=== PATIENT | female | born 1985 | race Caucasian/White ===

== ENCOUNTER 2017-01-29 14:47 | Emergency (ER) | payer BC ==
[~2017-01-29] VITALS: Ht 170.2 cm; Wt 77.0 kg
[~2017-01-29 14:47] MED LIST: ALBU8.5H3 INH; ALPR0.25 PO; CARI350T PO; ESTR1TAB15 PO; FLUT9.9S NS; HYDR-3307 PO; MELA1TAB15 PO; NAPR500T3 PO; OXYC-302 PO; PARO20TA55 PO; POLY17PO5 PO
[2017-01-29] MEDS ORDERED: SODIUM CHLORIDE 0.9% 1,000 ML IV ONE (15:10)
[2017-01-29] MEDS ORDERED: NALOXONE 1 MG/ML, 2ML ONE (15:21)
[2017-01-29] MEDS ORDERED: NALOXONE 1 MG/ML, 2ML IVPush ONE (15:30)
[2017-01-29 15:36] LABS: BLOOD UREA NITROGEN 15 mg/dL (7-18)
[2017-01-29 15:37] LABS: ASPARTATE AMINO TRANSFERASE 17 U/L (15-37)
[2017-01-29 17:51] VITALS: BP 123/66
== END 2017-01-29 17:53 | disposition home or self-care (01) ==
LOC: ED 15:37
DX: F12.10 Cannabis abuse, uncomplicated (principal); R41.82 Altered mental status, unspecified; R41.0 Disorientation, unspecified; J45.909 Unspecified asthma, uncomplicated
CPT/HCPCS: 36415; 70450; 71010; 80053; 83690; 84703; 85025; 96374; 99285; J2310; J7030

== ENCOUNTER 2017-02-01 18:30 | Emergency (ER) | payer BC ==
[~2017-02-01] VITALS: Ht 170.2 cm; Wt 77.0 kg
[2017-02-01 18:58] LABS: ASPARTATE AMINO TRANSFERASE 22 U/L (15-37); BLOOD UREA NITROGEN 13 mg/dL (7-18)
[2017-02-01] MEDS ORDERED: hydrOXyzine 50MG TABLET PO ONE (19:00)
[2017-02-01 19:04] LABS: ACETAMINOPHEN < 2 mcg/mL (10-30)
[2017-02-01 19:08] LABS: DAU SCREEN DISCLAIMER
[2017-02-01] MEDS ORDERED: DICL50TA4 PO (19:35)
[2017-02-01] MEDS ORDERED: FLUO10CA13 PO (19:35)
[2017-02-01] MEDS ORDERED: TRAZ100T15 PO (19:35)
[2017-02-01] MEDS ORDERED: HYDR50CA PO (19:35)
[2017-02-01] MEDS ORDERED: PREG50CA PO (19:35)
[2017-02-01] MEDS ORDERED: OXYcodone/APAP 5/325MG TABLET PO ONE (21:00)
[2017-02-01] MEDS ORDERED: OXYcodone/APAP 5/325MG TABLET ONE (21:04)
[2017-02-01 21:26] VITALS: BP 122/79
[2017-02-01 23:00] LABS: HCG UR OBC PASS
== END 2017-02-01 21:57 | disposition home or self-care (01) ==
LOC: ED 20:07
DX: F33.9 Major depressive disorder, recurrent, unspecified (principal); J45.909 Unspecified asthma, uncomplicated; F43.10 Post-traumatic stress disorder, unspecified
CPT/HCPCS: 36415; 80053; 80307; 80329; 81003; 81025; 85025; 99284; G0480